=== PATIENT | male | born 1965 | race Caucasian/White ===

== ENCOUNTER 2022-11-26 09:43 | Emergency (ER) | payer MEDICARE, MEDICAID, SELFPAY ==
[2022-11-26 09:57] VITALS: BP 130/75; PULSE 99; RESP 18; TEMP 36.6; O2SAT 97; BMI 25.4
[2022-11-26 10:02] VITALS: PULSE 99
--- NOTE | 2022-11-26 10:04 | PC.NURSE ---
PT WITH REDNESS AND SWELLING NOTED TO LEFT ANKLE GOOD CAP REFILL NOTED PAIN RADIATES UP TOWARD CALF AREA
--- NOTE | 2022-11-26 10:20 | US_ITS ---
The [address] [address] Patient Name: MATT HUNT MRN: [id number] date: 1965 Sex: M Assigned Patient Location: ER Current Patient Location: ER Accession/Order Number: [id number] Exam Date: 11/26/2022 10:20 Report Date: 11/26/2022 11:00 At the request of: JULIANA MARIE Procedure: US venous doppler LE LT Ultrasound venous duplex scan left lower extremity CLINICAL: Pain and swelling TECHNIQUE: Adair-scale, color-flow, and Spectral Doppler examination of the left lower extremity were performed with and without provocative maneuvers. FINDINGS: Sonographic examination of the left lower extremity deep venous system to include the common femoral, superficial femoral and popliteal veins, demonstrates normal compressibility, color-flow, respiratory variation, and augmentation. The origin and proximal segment of the greater saphenous vein also demonstrates normal compression and color-flow. There is normal color-flow in the peroneal, posterior tibial, and anterior tibial veins. IMPRESSION: No deep venous thrombosis of the left lower extremity. Electronically authenticated by: ARIADNA JEREZ Date: 11/26/2022 11:00
--- NOTE | 2022-11-26 10:37 | PC.NURSE ---
U/S IN WITH PATIENT
--- NOTE | 2022-11-26 12:30 | XR_ITS ---
The [address] [address] Patient Name: MATT HUNT MRN: [id number] date: 1965 Sex: M Assigned Patient Location: ER Current Patient Location: Accession/Order Number: [id number] Exam Date: 11/26/2022 12:40 Report Date: 11/26/2022 13:16 At the request of: JULIANA MARIE Procedure: XR ankle LT min 3V PROCEDURE: XR ankle LT min 3V HISTORY: pain ; acute left ankle pain and swelling COMPARISON: None. FINDINGS: BONES:No fracture, acute abnormality, or significant arthropathy. SOFT TISSUES:No visible soft tissue swelling. EFFUSION:None visible. OTHER: Atherosclerotic disease. IMPRESSION: 1. No acute bone abnormality or significant degenerative joint disease. Electronically authenticated by: KORTNEY JACOME Date: 11/26/2022 13:16
--- NOTE | 2022-11-26 12:31 | ED_ITS ---
HPI - General Adult General Chief complaint: Extremity Injury, Lower Stated complaint: LEFT LOWER EXTEMITY PAIN Time Seen by Provider: 11/26/22 10:39 Source: patient Mode of arrival: walk-in Limitations: no limitations History of Present Illness HPI narrative: Patient is a 57-year-old male who is presenting to the Emergency Room today with chief complaint of left ankle pain that started Tuesday afternoon. 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 Patient does not recall any type of injury. Patient's having pain to his left lateral ankle. Patient saw an urgent care yesterday, and was placed on antibiotic secondary to having some redness to his left ankle. Patient was told to redness gets worse, he is having leg pain go to the Emergency Room to have an ultrasound to rule out deep vein thrombosis. Patient has only had an injury or pain for 2 days. Patient has no recent traveling or trauma. No injury. No recent surgeries. Patient has no risk for deep vein thrombosis. Patient was coming to the Emergency Room today because he is instructed to do this by the urgent care. Patient has been using some ice, alternating Tylenol Motrin for pain. Other acute complaints. . All systems are negative except as noted/marked. All systems reviewed and otherwise negative. . Nurses note and vital signs reviewed and patient is not hypoxic. General: The patient appears well and in no apparent distress. Patient is resting comfortably on cart. Patient is not toxic, lethargic, or listless Skin: Warm, dry, no pallor noted. There is no rash noted. No petechiae, purpura. Head: Normocephalic, atraumatic Eye: Normal conjunctiva, no drainage, EOMI. PERRL Ears, Nose, Mouth, and Throat: oral mucosa is moist. Nares patent. Mouth without vesicles. Cardiovascular: Regular Rate and Rhythm, no murmur, gallop, rub Respiratory: Patient is in no distress, no accessory muscle use, lungs are clear to auscultation, no wheezing, rales or rhonchi Musculoskeletal: Patient has full range of motion of all of the extremities, Patient has moderate tenderness to palpation to left lateral malleolus, no tenderness to palpation to left medial malleolus, patient's Achilles tendon is intact, patient has mild to moderate tenderness to palpation with inversion of left ankle, patient has no pain to the mid foot or dorsal aspect of his left foot or plantar aspect of his left foot. No motor, sensory, or focal neurological deficits Neurological: A&O x3, normal speech Psychiatric: Cooperative Related Data Home Medications Medication Instructions Recorded Confirmed aspirin 81 mg capsule 81 mg PO DAILY 11/26/22 11/26/22 atorvastatin 40 mg tablet 40 mg PO QPM 11/26/22 11/26/22 doxycycline monohydrate 100 mg 100 mg PO Q12H 11/26/22 11/26/22 capsule levothyroxine 175 mcg tablet 175 mcg PO QAM 11/26/22 11/26/22 losartan 50 mg tablet 50 mg PO QDAY 11/26/22 11/26/22 Allergies Allergy/AdvReac Type Severity Reaction Status Date / Time No Known Drug Allergies Allergy Verified 11/26/22 09:57 Exam Constitutional: Vital Signs, click to edit/add: Vital Signs - 24 hr 11/26/22 09:57 11/26/22 10:02 Temperature 97.8 F Pulse Rate [Monito r] 99 H 99 H Respiratory Rate 18 Blood Pressure [Le ft Arm] 130/75 H Pulse Oximetry 97 Oxygen Delivery Me thod Room Air Course Vital Signs Vital signs: Vital Signs Temperature 97.8 F 11/26/22 09:57 Pulse Rate 99 H 11/26/22 09:57 Respiratory Rate 18 11/26/22 09:57 Blood Pressure 130/75 H 11/26/22 09:57 Pulse Oximetry 97 11/26/22 09:57 Oxygen Delivery Method Room Air 11/26/22 09:57 Temperature 97.8 F 11/26/22 09:57 Pulse Rate 99 H 11/26/22 10:02 Respiratory Rate 18 11/26/22 09:57 Blood Pressure 130/75 H 11/26/22 09:57 Pulse Oximetry 97 11/26/22 09:57 Oxygen Delivery Method Room Air 11/26/22 09:57 Medical Decision Making [facility] Narrative Medical decision making narrative: Patient had a ultrasound of his left leg that showed no deep vein thrombosis. There was a delay in ordering x-ray, I thought patient had an x-ray prior to arrival he did not. I gave patient a blameless apology, x-ray was ordered And patient was happy this. Patient's left ankle x-ray shows no acute fracture, dislocation or acute abnormality. Procedure note: patient had a David wrap and Aircast applied to the left ankle. Splint was assisted with . the patient was neurovascularly intact before and after the splint was placed. the affected bones/injured area had proper alignment in a splint. Education on splint care at home was given at bedside. Patient and family have no questions at discharge. Patient was educated using ice, Tylenol Motrin at home for pain. Patient was given work restriction oh. Patient is to use an alternate Tylenol Motrin. Patient will follow-up with PCP. Patient was relieved that x-ray and VDT study showed a both negative. No questions at discharge. Discharge Plan Discharge Chief Complaint: Extremity Injury, Lower Clinical Impression: Ankle sprain and strain Patient Disposition: Home, Self-Care Time of Disposition Decision: 12:38 Prescriptions / Home Meds: No Action aspirin 81 mg capsule 81 mg PO DAILY atorvastatin 40 mg tablet 40 mg PO QPM doxycycline monohydrate 100 mg capsule 100 mg PO Q12H Rx Instructions: FOR 10 DAYS FILL HX - 11/25/22 losartan 50 mg tablet 50 mg PO QDAY levothyroxine 175 mcg tablet 175 mcg PO QAM Additional Instructions: Ice 20 minutes on, 20 minutes off. Use David wrap and Aircast for the next 3-5 days at least. Weightbearing as tolerated. Work note and restrictions were given. Follow-up with PCP if any other acute concerns for Stand Alone Forms: Work/School Release, Portal Instructions Referrals: Shaikh Emery MD [Primary Care Provider] - 1 week
--- NOTE | 2022-11-26 13:14 | PC.NURSE ---
RADHA WRAP AND AIR CAST APPLIED TO LEFT ANKLE PRIOR TO DISCHARGE
== END 2022-11-26 13:14 | disposition home or self-care (01) ==
PROVIDERS: Emergency Provider Emergency Medicine; PCP Internal Medicine
DX: S93.402A Sprain of unspecified ligament of left ankle, initial encounter (principal); S96.912A Strain of unspecified muscle and tendon at ankle and foot level, left foot, initial encounter; M79.89 Other specified soft tissue disorders; X58.XXXA Exposure to other specified factors, initial encounter; Z79.82 Long term (current) use of aspirin; Z79.890 Hormone replacement therapy; Z79.899 Other long term (current) drug therapy
CPT/HCPCS: 73610; 93971; 99284

== ENCOUNTER 2023-02-15 07:30 | Outpatient (OUT) | payer MEDICARE, MEDICAID, SELFPAY ==
[2023-02-15 07:59] LABS: Creatinine Urine Random <13.00 mg/dL (20.00-300.00); Total Protein Urine Random <6.0 mg/dL (<=11.9)
[2023-02-15 09:41] LABS: Alanine Aminotransferase 47 U/L (16-63); Albumin Globulin Ratio 1.1; Albumin Level 3.8 g/dL (3.4-5.0); Alkaline Phosphatase 88 U/L (46-116); Aspartate Amino Transferase 61 U/L (15-37); Bilirubin Direct 0.2 mg/dL (0.0-0.2); Bilirubin Total 0.8 mg/dL (0.2-1.0); Chol HDL Ratio 2.2; Cholesterol 107 mg/dL (<=200); Free T3 3.21 pg/mL (2.18-3.98); Globulin 3.4 g/dL; HDL Cholesterol 49 mg/dL (40-60); LDL Cholesterol Calculated 46.4 mg/dL; Thyroid Stimulating Hormone 0.093 uIU/mL (0.358-3.740); Total Protein 7.2 g/dL (6.4-8.2); Triglycerides 58 mg/dL (<=150); VLDL CHOLESTEROL 11.6 mg/dL
[2023-02-15 09:42] LABS: Free T4 1.36 ng/dL (0.76-1.46)
[2023-02-16 07:10] LABS: Vitamin D, 25-Hydroxy 92.9 ng/mL (30.0-100.0)
== END 2023-02-15 07:31 | disposition home or self-care (01) ==
LOC: LAB 07:33
PROVIDERS: PCP Internal Medicine; Visit Provider Internal Medicine
DX: E10.65 Type 1 diabetes mellitus with hyperglycemia (principal); Z79.4 Long term (current) use of insulin; E55.9 Vitamin D deficiency, unspecified; I10 Essential (primary) hypertension; E03.9 Hypothyroidism, unspecified
CPT/HCPCS: 36415; 80061; 80076; 82306; 82570; 84156; 84439; 84443; 84481

== ENCOUNTER 2024-02-08 12:37 | Outpatient (OUT) | payer SELFPAY ==
--- NOTE | 2024-02-08 12:48 | XR_ITS ---
The [address] [address] Patient Name: MATT HUNT MRN: [id number] date: 1965 Sex: M Assigned Patient Location: [facility] Current Patient Location: Accession/Order Number: [id number] Exam Date: 02/08/2024 12:53 Report Date: 02/10/2024 09:21 At the request of: ARLYN BARKER Procedure: XR chest 2V PROCEDURE: XR chest 2V DATE: 02/08/2024 11:53 AM CDT COMPARISONS: 07/28/2021 CLINICAL INDICATION: 58 years Male Chronic Cough R05.3, Cough With Hemoptysis R04.2 FINDINGS: The cardiomediastinal silhouette and pulmonary vasculature are within normal limits. The lungs are clear. There is no evidence of pleural effusion or pneumothorax. XR/XR chest 2V IMPRESSION: Chest radiograph is within normal limits, stable from previous exam. Electronically authenticated by: DARREN BAIG Date: 02/10/2024 09:21
== END 2024-02-08 12:38 | disposition home or self-care (01) ==
LOC: RAD 12:42
DX: R05.3 Chronic cough (principal); R04.2 Hemoptysis
CPT/HCPCS: 71046

== ENCOUNTER 2024-10-25 12:49 | Outpatient (OUT) | payer SELFPAY | END 2024-10-25 12:50 | disposition home or self-care (01) | LOC: LAB 12:49 | DX: B20 Human immunodeficiency virus [HIV] disease (principal) | CPT/HCPCS: 36415; 86361; 87536 ==